=== PATIENT | female | born 1985 | race Caucasian/White ===

== ENCOUNTER 2024-11-14 12:02 | Emergency (ER) | payer OTHER, SELFPAY ==
[2024-11-14] VITALS (14 sets, daily range): BP systolic 86–122; BP diastolic 41–77; PULSE 53–76; RESP 12–18; TEMP 36.5; O2SAT 94–99
--- NOTE | 2024-11-14 12:00 | RT.EKG_ITS ---
APPROVED REPORT Exam: Resting ECG Reason for Exam: dizziness Patient Location: E HR:67 bpm ECG Measurements Heart Rate 67 AXIS SD 156 P 34 QRSd 96 QRS 40 QT 392 T 12 QTc 413 Conclusion Sinus rhythm, rate 67 No interval abnormalities No STEMI Isolated T wave inversion lead III, no priors available for comparison
--- NOTE | 2024-11-14 12:39 | W.ED.GENAD ---
Discharge Plan Disposition Patient Disposition: Home Condition: Stable Discharge Details Clinical Impression: Peripheral vertigo Primary Care Provider: Gena Anand ED Provider: Barrington Brenner Home Meds and New Rx's Prescriptions: New meclizine 25 mg tablet 25 mg PO TID PRNQty: 30 0RF Discharge Instructions Instructions: Meclizine, Vestibular Exercises, Vertigo ED Additional Instructions: You were seen in the emergency department for your likely peripheral vertigo. Please follow-up with physical therapy visits for vestibular rehab, I have sent your prescription for meclizine for dizziness, your CTA shows no stroke or vascular abnormality of the head and neck, your x-ray chest is negative and your cardiac workup is negative. Please contact your primary care provider for follow-up, I provided you a referral to any physical therapy practice in the area, please return to the emergency department for any intractable nausea or vomiting, continued vertigo despite treatment without resolution, chest pain, other neurologic abnormality like slurred speech, repetitive questioning, altered mentation, visual changes. Referrals: Gena Anand [Primary Care Provider, Medicine] HPI General Date/Time Provider Initiated Documentation: 11/14/24 12:39. HPI Narrative: 39-year-old female had a viral syndrome that has resolved over the past week or so, started feeling nauseous and dizzy this morning with vertiginous feelings of the world spinning around her, she has been camping with her family in the area locally. She feels she has been staying hydrated and eating normal diet, denies any altered mentation, chest pain, palpitations, fever, abdominal pain or nausea, pulsatile tinnitus, visual changes. Patient not anticoagulated. Related Data Home Medications ?Medication ?Instructions ?Recorded ?Confirmed meclizine 25 mg tablet 25 mg PO TID PRN #30 tabs 11/14/24 Previous Rx's ?Medication ?Instructions ?Recorded meclizine 25 mg tablet 25 mg PO TID PRN #30 tabs 11/14/24 Allergies Allergy/AdvReac Type Severity Reaction Status Date / Time Latex, Natural Rubber AdvReac Intermediate Skin Rash Verified 11/14/24 12:10 General Stated Complaint: Dizzy/Sync SATYA: 3 Review of Systems All systems reviewed & are unremarkable except as noted in HPI and below Exam Narrative Exam Narrative: GENERAL APPEARANCE: Well-nourished, non-toxic, awake and alert, atraumatic, no acute distress. SKIN: Warm, pink, dry, intact, without rashes/lesions/ulcerations. HEAD: Normocephalic, atraumatic, normal hair distribution for gender/age. EYES: Normal conjunctiva, no exudates on lids/lashes, EOMS intact without nystagmus, visual gooden intact, vision grossly intact ENT: Nares patent, no circumoral cyanosis, no facial swelling NECK: Supple, trachea midline, painless cervical ROM. LUNGS/CHEST: Lungs CTA bilaterally- no rhonchi/rales/wheezes diffusely, non-labored respirations, normal A/P diameter, symmetrical expansion, no chest wall deformity HEART (CV/PV): Regular rate and rhythm without murmur, no peripheral edema, no JVD. ABDOMEN: Soft, non-distended, no guarding. MSK: Normal ROM, no swelling/deformity to bilateral UEs or LEs, moving all extremities without weakness, no cyanosis, spine midline without tenderness, normal curvature. NEURO: Mental Status AAOx4 - alert to person, place, time, events No facial droop, no forehead involvement, no dysmetria with cerebellar testing Motor: No focal weakness - strength 5/5 in bilateral UEs and LEs, proximal and distal, symmetric. Sensory: sensation intact to light touch globally. Gait unsteady- patient unable to even participate in gait testing Romberg present PSYCH: euthymic, cooperative, pleasant, appropriate speech Course Vital Signs Vital signs: Vital Signs Temperature 36.5 C 11/14/24 12:03 Pulse 76 11/14/24 12:03 Respiratory Rate 16 11/14/24 12:03 Blood Pressure 117/77 11/14/24 12:03 Pulse Oximetry 94 11/14/24 12:03 Temperature 36.5 C 11/14/24 12:03 Temperature Source Oral 11/14/24 12:03 Pulse 76 11/14/24 12:03 Respiratory Rate 16 11/14/24 12:03 Blood Pressure 117/77 11/14/24 12:03 Blood Pressure Position Sitting 11/14/24 12:03 Pulse Oximetry 94 11/14/24 12:03 Oxygen Delivery Method Room Air 11/14/24 12:03 Oxygen Flow Rate 0 11/14/24 12:03 Pain Level 0 11/14/24 12:03 Medical Decision Making This dictation utilizes [id number] dictation software and may contain unedited grammatical errors. 39-year-old female had a viral syndrome that has resolved over the past week or so, started feeling nauseous and dizzy this morning with vertiginous feelings of the world spinning around her, she has been camping with her family in the area locally. She feels she has been staying hydrated and eating normal diet, denies any altered mentation, chest pain, palpitations, fever, abdominal pain or nausea, pulsatile tinnitus, visual changes. Patient is otherwise healthy. Patients' medical history: Noncontributory. Family and social history: Noncontributory. Pertinent exam findings / vital signs include hints exam negative, neuro intact without any focal deficits, benign cardiopulmonary status, nontoxic and afebrile. Differential / pathologies of concern include peripheral vertigo, viral syndrome, vascular anomaly of the head or neck. Diagnostic studies of: - CTA brain and neck, x-ray chest, EKG, CBC, CMP, troponin, magnesium, TSH, tick and Lyme panel. - CTA brain and neck negative - X-ray chest negative - CBC benign - CMP shows no electrolyte abnormalities - Troponin negative with reliable onset - Magnesium within normal limits - TSH within normal limits - Tick & Lyme panel pending - EKG shows sinus rhythm 67 bpm with P waves followed by narrow complex QRS, normal axis, good R wave progression, no ischemic changes, normal intervals Interventions of: -25mg PO meclizine, PT consult - signed out with consult pending ED Course/Assessment/Plan: Patient presents with episodic vertigo, sudden onset today, has negative hints exam, CTA brain and neck negative, x-ray chest negative, cardiac workup and EKG are benign, I do suspect positional peripheral vertigo, patient was trialed on meclizine, physical therapy consult for vestibular maneuvers pending at time of signout, Tick & Lyme Panel pending Findings not consistent with Central Vertigo, CVA, Malignancy, Dehydration, Sepsis. Disposition of Peripheral Vertigo. Patient verbalized understanding of the plan and return to ED criteria and engaged in shared decision making. Medical Records Medical records reviewed: Yes I reviewed the patient's medical records. Imaging Data Radiologic Study: Attestation: I personally reviewed and interpreted this imaging study as follows: Imaging: CT Scan Radiologist's impression: EXAM: CT BRAIN NECK CTA CLINICAL HISTORY: vertigo, unsteady gait. TECHNIQUE: Imaging Protocol: Axial CT angiography was performed with multi-slice acquisition and multi-planar and/or 3D reconstructions. CONTRAST MATERIAL: Intravenous: Omnipaque 350 contrast volume:70 mL COMPARISON: No exams were available for comparison FINDINGS: CT Head W/O and W: Ventricles and Extra axial spaces: Normal in size and morphology for the patient's age. Hemorrhage: None. Cerebral parenchyma: There is a normal alvarez-white matter differentiation. Midline shift: None. Brainstem/Cerebellum: Normal. Calvarium: Normal. Visualized Paranasal sinuses/Mastoids: Clear. Soft Tissues: Unremarkable. Enhancement: Unremarkable. 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 Common Carotid: Right: No dissection, occlusion or significant stenosis. Left: No dissection, occlusion or significant stenosis. External Carotid: Right: No occlusion or significant stenosis. Left: No occlusion or significant stenosis. Internal Carotid: Right: No dissection, occlusion or significant stenosis. Left: No dissection, occlusion or significant stenosis. Vertebral Artery: There is a dominant left vertebral artery. The right vertebral artery is small but patent throughout. Right: No dissection, occlusion or significant stenosis. Left: No dissection, occlusion or significant stenosis. Lung Apices: Normal. Bones: Within normal limits for the patient's age. Soft Tissues: Normal. Thyroid gland: Unremarkable. CTA Brain W: Internal Carotid Arteries: There is no evidence of aneurysm, occlusion or significant stenosis. Anterior Cerebral Arteries: Right: No aneurysm, occlusion or significant stenosis. Left: No aneurysm, occlusion or significant stenosis. Middle Cerebral Arteries: Right: No aneurysm, occlusion or significant stenosis. Left: No aneurysm, occlusion or significant stenosis. Posterior Cerebral Arteries: The left posterior cerebral artery arises from the left posterior communicating artery. Right: No aneurysm, occlusion or significant stenosis. Left: No aneurysm, occlusion or significant stenosis. Vertebral Arteries: Right: No aneurysm, occlusion or significant stenosis. Left: No aneurysm, occlusion or significant stenosis. Basilar Artery: No aneurysm, occlusion or significant stenosis. IMPRESSION: 1. No large vessel occlusion or significant stenosis on the CT angiography of the head. 2. No acute intracranial process. 3. No occlusion or significant stenosis on the CT angiography of the neck. Radiologic Study #2: Attestation: I personally reviewed and interpreted this imaging study as follows: Imaging: X-Ray Radiologist's impression: EXAM: XR CHEST 2V PA LATERAL CLINICAL HISTORY: vertigo, dizziness TECHNIQUE: 2D digital imaging was performed of the chest. Two images were obtained. PA and lateral views were obtained. COMPARISON: No exams were available for comparison FINDINGS: MEDIASTINUM: Normal. HEART: Normal. PULMONARY VASCULATURE: Normal. LUNGS: Clear. PLEURAL SPACE: No pleural effusion or pneumothorax. BONE:Within normal limits for the patient's age. OTHER FINDINGS:Normal. IMPRESSION: No acute pulmonary findings. Lab Data Lab results reviewed: Yes I reviewed the patient's lab results. Labs: Laboratory Tests Range/Units 11/14/24 13:15 WBC (4.4-10.8) 10^3/uL 5.42 RBC (3.93-5.22) 10^6/uL 4.67 Hgb (11.2-15.7) g/dL 13.6 Hct (36.0-46.0) % 41.6 MCV (80-95) fL 89 MCH (27.0-33.0) pg 29.1 MCHC (32.0-36.0) % 32.7 RDW (11.7-14.6) % 13.0 Plt Count (130-400) 10^3/uL 259 MPV (8.0-11.0) fL 10.5 Immature Gran % % 0.4 Neutrophils % % 67.4 Lymphocytes % % 23.6 Monocytes % % 6.8 Eosinophils % % 1.1 Basophils % % 0.7 Nucleated RBC % (0.0-0.3) % 0.0 Absolute Neutrophils (1.2-6.7) 10^3/uL 3.65 Absolute Lymphocytes (1.2-3.4) 10^3/uL 1.28 Absolute Monocytes (0.1-0.8) 10^3/uL 0.37 Absolute Eosinophils (0.0-0.7) 10^3/uL 0.06 Absolute Basophils (0.0-0.2) 10^3/uL 0.04 Sodium (136-145) mmol/L 139 Potassium (3.5-5.1) mmol/L 3.9 Chloride (98-107) mmol/L 102 Carbon Dioxide (21.0-32.0) mmol/L 29.0 Anion Gap (3-11) mmol/L 8.0 BUN (7-18) mg/dL 13 Creatinine (0.55-1.02) mg/dL 0.8 Est GFR (CKD-EPI 2020) (mL/min/1.73m2) 96.06 Glucose (74-106) mg/dL 100 Calcium (8.5-10.1) mg/dL 9.3 Magnesium (1.8-2.4) mg/dL 2.3 Total Bilirubin (0.2-1.0) mg/dL 0.3 AST (15-37) U/L 17 ALT (14-59) U/L 32 Alkaline Phosphatase (46-116) U/L 91 Troponin I (<or=51) ng/L < 4 Total Protein (6.4-8.2) g/dL 7.9 Albumin (3.4-5.0) g/dL 4.1 TSH (0.36-3.74) uIU/mL 2.33 PFSH All Active Problems (Updated 11/14/24 @ 15:29 by MEGHAN Sandoval) Peripheral vertigo (Acute) Social History Smoking/Tobacco Use Status: Former Tobacco Use Smoking risk assessment performed?: Yes Alcohol Intake: current Alcohol Intake frequency: holidays/special occasions only Alcohol type: wine Substance use type: does not use Details: has not smoked since she was a teenager last wine in October Housing: house Do you feel safe at home: Yes Do you feel safe in your relationship?: Yes
[2024-11-14 13:27] LABS: Abs Immature Grans 0.02 10^3/uL (0.0-0.06); HCT 41.6 % (36.0-46.0); HGB 13.6 g/dL (11.2-15.7); Immature Grans % 0.4 %; MCH 29.1 pg (27.0-33.0); MCHC 32.7 % (32.0-36.0); MCV 89 fL (80-95); MPV 10.5 fL (8.0-11.0); Platelet Count 259 10^3/uL (130-400); RBC 4.67 10^6/uL (3.93-5.22); RDW 13.0 % (11.7-14.6); RDW-SD 42.5 fL; WBC 5.42 10^3/uL (4.4-10.8)
[2024-11-14 13:56] LABS: ALT 32 U/L (14-59); AST 17 U/L (15-37); Albumin 4.1 g/dL (3.4-5.0); Alkaline Phosphatase 91 U/L (46-116); Anion Gap 8.0 mmol/L (3-11); BUN 13 mg/dL (7-18); Bilirubin, Total 0.3 mg/dL (0.2-1.0); CO2 29.0 mmol/L (21.0-32.0); Calcium 9.3 mg/dL (8.5-10.1); Chloride 102 mmol/L (98-107); Estimated GFR 96.06 (mL/min/1.73m2); Glucose 100 mg/dL (74-106); Magnesium 2.3 mg/dL (1.8-2.4); Potassium 3.9 mmol/L (3.5-5.1); Sodium 139 mmol/L (136-145); TSH (W/Ref FT4) 2.33 uIU/mL (0.36-3.74); Total Protein 7.9 g/dL (6.4-8.2)
[2024-11-14 13:57] LABS: Troponin I < 4 ng/L (<or=51)
[2024-11-14] MEDS: Normal Saline - Diluent 50 ML VIAL IJ (14:11)
[2024-11-14] MEDS: Omnipaque 350 MG/ML 100 ML BTL IJ (14:12)
--- NOTE | 2024-11-14 14:30 | DI.CT_ITS ---
Exam(s) CT BRAIN NECK CTA EXAM: CT BRAIN NECK CTA CLINICAL HISTORY: vertigo, unsteady gait. TECHNIQUE: Imaging Protocol: Axial CT angiography was performed with multi- slice acquisition and multi-planar and/or 3D reconstructions. CONTRAST MATERIAL: Intravenous: Omnipaque 350 contrast volume:70 mL COMPARISON: No exams were available for comparison FINDINGS: CT Head W/O and W: Ventricles and Extra axial spaces: Normal in size and morphology for the patient's age. Hemorrhage: None. Cerebral parenchyma: There is a normal alvarez-white matter differentiation. Midline shift: None. Brainstem/Cerebellum: Normal. Calvarium: Normal. Visualized Paranasal sinuses/Mastoids: Clear. Soft Tissues: Unremarkable. Enhancement: Unremarkable. 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 Common Carotid: Right: No dissection, occlusion or significant stenosis. Left: No dissection, occlusion or significant stenosis. External Carotid: Right: No occlusion or significant stenosis. Left: No occlusion or significant stenosis. Internal Carotid: Right: No dissection, occlusion or significant stenosis. Left: No dissection, occlusion or significant stenosis. Vertebral Artery: There is a dominant left vertebral artery. The right vertebral artery is small but patent throughout. Right: No dissection, occlusion or significant stenosis. Left: No dissection, occlusion or significant stenosis. Lung Apices: Normal. Bones: Within normal limits for the patient's age. Soft Tissues: Normal. Thyroid gland: Unremarkable. CTA Brain W: Internal Carotid Arteries: There is no evidence of aneurysm, occlusion or significant stenosis. Anterior Cerebral Arteries: Right: No aneurysm, occlusion or significant stenosis. Left: No aneurysm, occlusion or significant stenosis. Middle Cerebral Arteries: Right: No aneurysm, occlusion or significant stenosis. Left: No aneurysm, occlusion or significant stenosis. Posterior Cerebral Arteries: The left posterior cerebral artery arises from the left posterior communicating artery. Right: No aneurysm, occlusion or significant stenosis. Left: No aneurysm, occlusion or significant stenosis. Vertebral Arteries: Right: No aneurysm, occlusion or significant stenosis. Left: No aneurysm, occlusion or significant stenosis. Basilar Artery: No aneurysm, occlusion or significant stenosis. IMPRESSION: 1. No large vessel occlusion or significant stenosis on the CT angiography of the head. 2. No acute intracranial process. 3. No occlusion or significant stenosis on the CT angiography of the neck. RADIATION DOSE DELIVERED: 2,186.7mGy.cm Total DLP DATA REPOSITORY: All CT scans at this facility are submitted to the National Radiology Data Registry (NRDR) Dose Index Registry (DIR) with the [employer] (ACR). RADIATION OPTIMIZATION: All CT scans at this facility use at least one of these dose optimization techniques: automated exposure control; mA and/or kV adjustment per patient size (includes targeted exams where dose is matched to clinical indication); or iterative reconstruction.
--- NOTE | 2024-11-14 14:42 | DI.RAD_ITS ---
Exam(s) XR CHEST 2V PA LATERAL EXAM: XR CHEST 2V PA LATERAL CLINICAL HISTORY: vertigo, dizziness TECHNIQUE: 2D digital imaging was performed of the chest. Two images were obtained. PA and lateral views were obtained. COMPARISON: No exams were available for comparison FINDINGS: MEDIASTINUM: Normal. HEART: Normal. PULMONARY VASCULATURE: Normal. LUNGS: Clear. PLEURAL SPACE: No pleural effusion or pneumothorax. BONE:Within normal limits for the patient's age. OTHER FINDINGS:Normal. IMPRESSION: No acute pulmonary findings. DATA REPOSITORY: RADIATION DOSE DELIVERED:
[2024-11-14] MEDS: Meclizine 25 MG TAB PO (15:07)
--- NOTE | 2024-11-14 17:34 | IN_ITS ---
PT Notes Visit Reasons: Dizziness PT Emergency Room Vertigo Evaluation Date: 11/14/24 Referring Doctor: Dr. Brenner PT Orders: vestibular consult Certification Period: From 11/14/24 through 11/14/24 I certify the need for these services as being medically necessary and skilled as furnished under this plan of treatment while under my care. Please sign and return within 14 days if you agree wit the above plan of care. Thank you for this referral! Referring Physician: Date: Precautions: standard Patient Profile/Admitting Diagnosis: Pt is an active and independent 39 year old female who presented to ED with c/o dizziness. Head CT in ER normal. PT consult requested for evaluation for peripheral vestibular disorder. Social History/Home Situation: Patient lives with her and their 4 children in [place]. They are visiting the area and camping at a local campground. Equipment owned/DME: none SUBJECTIVE: Symptoms: Mary reports progressive onset of dizziness over the past 24 hours. States that she had a cold last week, and just started feeling better yesterday. Last evening, she felt mild dizziness, then noticed similar symptoms this morning. This progressively worsened over the course of the day, until she began vomiting and experiencing room-spinning dizziness. She does not attribute onset to any particular motion, but does note that symptoms seem worse when looking to her left. Was given Meclizine in the ER, and notes improved symptoms. Denies hearing loss, tinnitus, visual changes. Does endorse imbalance, but improved on Meclizine. OBJECTIVE: General Observation: sitting at EOB at initiation of session. Guarded cervical movements. Mental Status: A&Ox3 Pain: denies ROM: ROM Cervical Spine : WFL Vertebral Artery Screening: Negative ROM: UE and LE ROM NEUROLOGICAL: Rhomberg: increased sway, but able to maintain x 20 seconds VENKAT Sensory Organization Performance Test for Vestibulopathy: (modified due to unavailablility of dynamic surface in ER setting) Position 1 (Rhomberg): sway Position 2 (Rhomberg, eyes closed): sway Position 3 (modified tandem): sway Position 4 (modified tandem, eyes closed): sway Position 5 (stand on foam): (unable to assess) Position 6 (stand on foam, eyes closed): (unable to assess) Position 7 (Fukuda): (-) Hints: spontaneous nystagmus: (-) Head thrust: (-) Test of Skew: (-) OCCULOMOTOR Visual Tracking: normal Head Thrust: negative Resting Nystagmus: (-) Gaze evoked nystagmus (+) to the left VESTIBULAR TESTING Robert-Hallpike Testing (BBPV): mildly (+) to each side, with subtle torsional nystagmus x 15 seconds left, 30 seconds right. No change in directionality with gaze. BED MOBILITY/TRANSFERS: Supine-sit: independent Sit-supine: : independent Sit-Stand: independent Stand-sit: independent Bed-Chair: independent Chair-bed:independent GAIT: Ambulates 20' independently, with slow, cautious gait and guarded head movements BALANCE: Static sitting: normal Dynamic Sitting: normal Static Standing: normal Dynamic Standing: good INFORMED CONSENT/EDUCATION: Pt instructed in purpose of PT Consult and plan of care. Treatment: Initial Evaluation (19679) Canalith Repositioning (00072) : Performed Polina maneuver to each side, 2 reps each, 90 second holds in each position, with good symptom reduction. PATIENT EDUCATION PRECAUTIONS POST TREATMENT: No Bending over or rapid head movements HOB elevated > 45 degrees ASSESSMENT: Patient is a 39 year old female referred to physical therapy services for evaluation and treatment of vertigo. Patient demonstrates mildly (+) [place]-Hallpike to each side, and responds favorably to treatment with Polina maneuver today, indicating likely BPPV as source of her symptoms. Her history, however, is suspicious for vestibular neuritis, given her recent viral illness and gradual onset without mechanical provocation. She has been treated with Meclizine prior to evaluation and responding favorably to that, and would recommend continued use as needed. She should follow up with outpatient PT for vestibular rehab to address any persistent symptoms. Otherwise, is ambulating independently, and is safe for discharge to community once medically appropriate. She currently demonstrates the following impairment level findings: 1. acute onset dizziness 2. balance impairment Impairments are contributing to the following functional limitations: 1. acute dizziness Patient is assessed as a Low 82050 complexity based on the following: History: as above Examination: as above Presentation: stable Decision Making: low complexity PLAN OF CARE/TREATMENT PLAN: One time consult DISCHARGE RECOMMENDATIONS: Home with outpatient PT referral for vestibular rehab TREATMENT TIME/MINUTES/CODES: 4494-9773 Thank you for this referral. Please do not hesitate to contact me with any questions or concerns regarding this patient's POC. Vijaya Trinidad, PT, DPT, [facility] All Active Problems (Updated 11/14/24 @ 15:29 by MEGHAN Sandoval) Peripheral vertigo (Acute)
[2024-11-15 11:25] LABS: Lyme Ab w Rflx to Lyme Confirm Positive (Negative)
[2024-11-15 15:16] LABS: Lyme IgG Ab Negative (Negative)
[2024-11-16 14:25] LABS: B. miyamotoi PCR Negative (Negative); Babesia divergens/MO-1 Negative (Negative); Ehrlichia muris eauclairensis Negative (Negative)
== END 2024-11-14 17:23 | disposition home or self-care (01) ==
PROVIDERS: Physician Assistant; Emergency Provider Physician Assistant; PCP Family Medicine
DX: H81.393 Other peripheral vertigo, bilateral (principal); R11.0 Nausea
CPT/HCPCS: 99284; 99285; 81025; 36415; 70496; 70498; 80053; 86617; 87798; 93005; 95992; 97161; 71046; 83735; 84443; 84484; 85025; 86618; 93010; J3490